=== PATIENT | male | born 1990 | race African-American/Black ===

== ENCOUNTER 2016-07-22 11:57 | Day surgery (SDC) | payer BC ==
[~2016-07-22] VITALS: Ht 167.6 cm; Wt 80.0 kg
[2016-07-22 13:42] LABS: EOSINOPHIL COUNT 0.1 K/uL (0-0.3); HEMATOCRIT 40.1 % (38.0-50.0); IMMATURE GRANULOCYTE (%) 0.2 % (0.0-0.7); IMMATURE GRANULOCYTE COUNT 0.2 K/uL; LYMPHOCYTE COUNT 1.9 K/uL (1.0-2.8); MCH 29.7 PG (29.0-34.0); MCHC 34.2 G/DL (30.0-36.0); MEAN PLAT.VOLUME 10.2 uM^3 (9.0-12.4); MONOCYTE (%) 8.1 % (3-12); MONOCYTE COUNT 0.9 K/uL (0-0.8); NEUTROPHIL COUNT 7.8 K/uL (1.8-6.4); PLATELET COUNT 227 K/uL (156-360); RBC DIS.WIDTH-CV 12.3 % (11.8-14.6); RBC DIS.WIDTH-SD 38.3 % (39-53); RED BLOOD COUNT 4.61 M/uL (4.00-5.50); WHITE BLOOD COUNT 10.7 K/uL (4.1-10.2)
[2016-07-22 13:52] LABS: CHLORIDE 104 mEq/L (99-109)
[2016-07-22 13:53] LABS: POTASSIUM 4.1 mEq/L (3.7-5.4); SODIUM 139 mEq/L (136-147)
[2016-07-22 13:55] LABS: GLUCOSE 96 mg/dL (70-99)
[2016-07-22 13:56] LABS: ANION GAP 10 MEQ/L (2-14)
[2016-07-22 13:58] LABS: ALKALINE PHOSPHATASE 65 IU/L (3-129); GFR ESTIMATE (CALCULATED) > 59 mL/min/
[2016-07-22 14:00] LABS: UREA NITROGEN (BUN) 14 mg/dL (9-23)
[2016-07-22 14:02] LABS: LIPASE 15 U/L (1.0-51.0)
[2016-07-22 14:14] LABS: ADD MIUA? NO; BILIRUBIN NEGATIVE; BLOOD NEGATIVE; COLOR YELLOW ((YELLOW)); GLUCOSE (STRIP) NEGATIVE; KETONES NEGATIVE; LEUKOCYTES NEGATIVE; NITRITE NEGATIVE; PROTEIN (STRIP) NEGATIVE; SPECIFIC GRAVITY 1.014 (1.000-1.030); UROBILINOGEN 0.2 MG/DL (0.2-1.0)
[2016-07-22] MEDS ORDERED: ARTIFICIAL TEAR15 M1 BOTH EYES (15:24)
[2016-07-22 21:03] VITALS: BP 146/85
[2016-07-22 23:38] VITALS: BP 147/81
[2016-07-23 06:55] VITALS: BP 124/69
[2016-07-23 07:00] LABS: MCHC 34.5 G/DL (30.0-36.0); MEAN PLAT.VOLUME 10.7 uM^3 (9.0-12.4); PLATELET COUNT 222 K/uL (156-360); RBC DIS.WIDTH-CV 12.4 % (11.8-14.6); RBC DIS.WIDTH-SD 39.6 % (39-53); WHITE BLOOD COUNT 10.2 K/uL (4.1-10.2)
[2016-07-23 07:26] LABS: ANION GAP 9 MEQ/L (2-14); CHLORIDE 105 MEQ/L (99-109); GFR ESTIMATE (CALCULATED) > 59 mL/min/; GLUCOSE 121 mg/dL (70-99); POTASSIUM 4.7 MEQ/L (3.7-5.4); SAMPLE HEMOLYSIS CHECK 0; SAMPLE ICTERIC CHECK 0; SAMPLE LIPEMIA CHECK 0; SODIUM 140 MEQ/L (136-147); UREA NITROGEN (BUN) 9 mg/dL (9-23)
[2016-07-23 11:53] VITALS: BP 123/85
[2016-07-23] MEDS ORDERED: HYDROCODON-ACE1 EAC7 PO (12:15)
== END 2016-07-23 12:50 | disposition home or self-care (01) ==
LOC: EME 11:57 → SDC 17:20 → EME 17:20 → 2SOUTH 17:21 → 2EAST 17:21 → 2SOUTH 17:21 → 2EAST 20:34
PROVIDERS: Physician Assistant; Surgery
PROC: 0DTJ4ZZ Resection of Appendix, Percutaneous Endoscopic Approach (ICD-10-PCS; principal; 2016-07-22)
DX: K35.80 Unspecified acute appendicitis (principal)
CPT/HCPCS: 74177; 80048; 80053; 81003; 83690; 85025; 85027; 88304; 94799; 99281; 99285; G0378; J0330; J1100; J1885; J2175; J2405; J3010; J7030; J7120